=== PATIENT | male | born 1985 | race Caucasian/White ===

== ENCOUNTER 2020-09-25 04:49 | Outpatient (CLI) | payer MEDICAID | END 2020-09-25 04:50 | disposition critical access hospital (66) | LOC: EMS 04:49 | DX: S09.90XA Unspecified injury of head, initial encounter (principal); X58.XXXA Exposure to other specified factors, initial encounter; Y92.009 Unspecified place in unspecified non-institutional (private) residence as the place of occurrence of the external cause | CPT/HCPCS: A0425; A0429 ==

== ENCOUNTER 2020-09-25 04:58 | Emergency (ER) | payer MEDICAID ==
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
[2020-09-25 05:56] LABS: BASOPHILS # (AUTO) 0.1 10^3/uL (0.0-0.1); BASOPHILS % (AUTO) 0.3 %; EOSINOPHILS % (AUTO) 0.1 %; HCT - HEMATOCRIT 43.9 % (42.0-52.0); HGB - HEMOGLOBIN 14.6 g/dL (14.0-18.0); LYMPHOCYTES # (AUTO) 0.8 10^3/uL (1.5-3.5); LYMPHOCYTES % (AUTO) 4.5 %; MEAN CORPUSCULAR HEMOGLOBIN 29.3 pg (27.0-31.0); MEAN CORPUSCULAR HGB CONC 33.3 g/dL (32.0-36.0); MEAN PLATELET VOLUME 9.3 fL (7.4-11.4); MONOCYTES # (AUTO) 0.9 10^3/uL (0.0-1.0); MONOCYTES % (AUTO) 5.1 %; NEUTROPHILS # (AUTO) 15.6 10^3/uL (1.5-6.6); NEUTROPHILS % (AUTO) 89.6 %; PLT - PLATELET COUNT 269 10^3/uL (130-450); RED BLOOD COUNT 4.99 10^6/uL (4.70-6.10); RED CELL DISTRIBUTION WIDTH 12.2 % (12.0-15.0); WHITE BLOOD COUNT 17.4 x10^3/uL (4.8-10.8)
[2020-09-25 06:10] LABS: ACETAMINOPHEN < 10 ug/mL (10-30); ALBUMIN 4.6 g/dL (3.2-5.5); ALBUMIN/GLOBULIN RATIO 1.8 (1.0-2.2); ALKALINE PHOSPHATASE 64 IU/L (42-121); ALT ALANINE AMINOTRANSFERASE 18 IU/L (10-60); AST ASPARTATE AMINOTRANSFERASE 22 IU/L (10-42); BILIRUBIN,TOTAL 1.6 mg/dL (0.2-1.0); BUN - BLOOD UREA NITROGEN 19 mg/dL (6-20); CALCIUM 9.1 mg/dL (8.5-10.3); CARBON DIOXIDE - CO2 27 mmol/L (21-32); CHLORIDE 101 mmol/L (101-111); CREATININE 1.2 mg/dL (0.6-1.2); ETOH - ETHANOL < 5.0 mg/dL; GFR - MDRD 69 (>89); GLUCOSE 113 mg/dL (70-100); LIPASE 31 U/L (22-51); POTASSIUM 3.7 mmol/L (3.5-5.0); SALICYLATE < 6.0 mg/dL; SODIUM 138 mmol/L (135-145); TOTAL PROTEIN 7.2 g/dL (6.7-8.2)
[2020-09-25 08:34] LABS: MUDS CUTOFF CONCENTRATIONS CUTOFF CONC BELOW:
[2020-09-25 08:35] LABS: BILIRUBIN,URINE NEGATIVE (NEGATIVE); GLUCOSE, URINE (UA) NEGATIVE (NEGATIVE); KETONES,URINE (UA) NEGATIVE (NEGATIVE); LEUKOCYTE ESTERASE, URINE NEGATIVE (NEGATIVE); NITRITE,URINE NEGATIVE (NEGATIVE); OCCULT BLOOD,URINE NEGATIVE (NEGATIVE); PROTEIN,URINE TRACE mg/dL (NEGATIVE); UROBILINOGEN,URINE 0.2 (NORMAL) E.U./dL (NORMAL)
[2020-09-25 08:37] LABS: CLARITY,URINE CLEAR (CLEAR)
[2020-09-25 08:46] LABS: AMPHETAMINE SCREEN,URINE NEGATIVE (NEGATIVE); BARBITURATE SCREEN,UR NEGATIVE (NEGATIVE); BENZODIAZEPINES SCREEN, URINE NEGATIVE (NEGATIVE); COCAINE SCREEN URINE NEGATIVE (NEGATIVE); METHADONE SCREEN, URINE NEGATIVE (NEGATIVE); METHAMPHETAMINES SCREEN, URINE POSITIVE (NEGATIVE); OPIATE SCREEN, URINE NEGATIVE (NEGATIVE); OXYCODONE SCREEN, URINE NEGATIVE (NEGATIVE); PROPOXYPHENE SCREEN, URINE NEGATIVE (NEGATIVE); THC CANNABINOID SCREEN, URINE POSITIVE (NEGATIVE); TRICYCLIC ANTIDEPRESSANT,URINE NEGATIVE (NEGATIVE)
[2020-09-25 09:31] LABS: B. PARAPERTUSSIS- RESP PCR PAN NOT DETECTED; B. PERTUSSIS- RESP PCR PANEL NOT DETECTED; C. PNEUMONIAE- RESP PCR PANEL NOT DETECTED; CORONAVIRUS 229E-RESP PCR NOT DETECTED; CORONAVIRUS HKU1-RESP PCR NOT DETECTED; CORONAVIRUS NL63-RESP PCR NOT DETECTED; CORONAVIRUS OC43-RESP PCR NOT DETECTED; HUMAN METAPNEUMOVIRUS NOT DETECTED; INFLUENZA A- RESP PCR PANEL NOT DETECTED; INFLUENZA B - RESP PCR PANEL NOT DETECTED; M. PNEUMONIAE- RESP PCR PANEL NOT DETECTED; PARAINFLUENZA VIRUS 1 NOT DETECTED; PARAINFLUENZA VIRUS 2 NOT DETECTED; PARAINFLUENZA VIRUS 3 NOT DETECTED; PARAINFLUENZA VIRUS 4 NOT DETECTED; RHINOVIRUS/ENTEROVIRUS NOT DETECTED; RSV- RESP PCR PANEL NOT DETECTED; SARS-CoV-2 -RESP PCR PANEL NOT DETECTED
[2020-09-25] MEDS ORDERED: LORazepam 1 MG TABLET PO STA (11:26)
--- NOTE | 2020-09-25 13:46 | ED Physician Documentation ---
ED Addendum - Addendum Addendum: 09/25/20 13:45The patient has remained calm and cooperative here in the ER. He was assessed by social work Yessy. He was minimizing the seriousness of his event from earlier. She felt he was not safe for discharge and requested DCR to evaluate. Arabella from DCR program talked with the patient and felt he was in need of hospitalization due to concern for safety. She is looking for bed available.
[2020-09-25] MEDS ORDERED: OLANZapine ODT 5 MG TABLET TL ONE (14:30)
[2020-09-25] MEDS ORDERED: OLANZapine 10 MG VIAL IM STA (14:32)
--- NOTE | 2020-09-25 14:37 | ED Physician Documentation ---
Face to Face for Restraints - Immediate Situation Face to Face Evaluation Date: 09/25/20 Face to Face Evaluation Time: 14:35 Restraint Situation: Chemical Patient's Reactions to the Intervention: Other - Behavioral Condition Attitude: Guarded Behavior: Agitated Orientation: Person, Place, Time Mood: Angry, Other (defensive/ paranoid) - Evaluation Review of Systems: see HPI Pertinent History/Illicit Drugs/Medications/Results: has had some drug use. - Plan Need to Continue or Terminate Violent or Chemical Restraint: will reassess after more time with meds. Not needing other dose just yet.
[2020-09-25] MEDS ORDERED: NICOTINE 14 MG PATCH TOP STA (17:25)
[2020-09-25 18:30] VITALS: BP 144/98
== END 2020-09-25 23:11 ==
LOC: EDBD → EDUNIT# → ED 04:58
DX: F22 Delusional disorders (principal); R45.851 Suicidal ideations; R45.850 Homicidal ideations; S01.01XA Laceration without foreign body of scalp, initial encounter; Y35.93XA Legal intervention, means unspecified, suspect injured, initial encounter; R00.0 Tachycardia, unspecified; Z78.1 Physical restraint status; Z20.822 Contact with and (suspected) exposure to COVID-19; F17.200 Nicotine dependence, unspecified, uncomplicated
CPT/HCPCS: 0202U; 12001; 36415; 80053; 80306; 80307; 80320; 80329; 81003; 82550; 83690; 84443; 85025; 93005; 99284; 99285; A9270; J8499; 81001; 87086

== ENCOUNTER 2021-04-13 13:09 | Emergency (ER) | payer MEDICAID ==
[2021-04-13] MEDS ORDERED: lidocaine 1% 20 ML MDV SUBQ ONE (13:30)
[2021-04-13] MEDS ORDERED: cephALEXin 250 MG CAPSULE PO STA (13:49)
[2021-04-13] MEDS ORDERED: HYDROcod/ACETAM 5/325 MG TABLET PO STA (13:49)
[2021-04-13] MEDS ORDERED: SULFAMETH/TRIMETH DS 800/160 MG TABLET PO STA (13:49)
--- NOTE | 2021-04-13 13:52 | ED Physician Documentation ---
History of Present Illness - Stated complaint Stated Complaint: LUMP ON CHIN - Chief complaint Chief Complaint: Wound - Additonal information Additional information: 35-year-old male presents emergency department for evaluation of an abscess that has developed on his mid anterior neck. Began about 5 days ago. He thought that he had an ingrown hair and he plucked out it. Since then he has developed a swelling about the size of a golf ball. He has no dysphonia or difficulty swallowing. No fevers. No history of similar in the past. Denies any history of diabetes. Review of Systems Constitutional: reports: Reviewed and negative Ears: reports: Reviewed and negative Nose: reports: Reviewed and negative Throat: reports: Reviewed and negative Cardiac: reports: Reviewed and negative Respiratory: reports: Reviewed and negative Skin: reports: Lesions Musculoskeletal: reports: Neck pain Neurologic: reports: Reviewed and negative PD PAST MEDICAL HISTORY - Present Medications Home Medications: Ambulatory Orders Medication Instructions Recorded Confirmed HYDROcod/ACETAM 5/325 [[place] 5/325] 1 tablet PO BID PRN #10 tablet 04/13/21 Sulfamethox/Trimeth 800/160 1 each PO BID #14 tablet 04/13/21 [Bactrim Ds 800/160] cephALEXin [Keflex] 500 mg PO Q6H #28 cap 04/13/21 - Allergies Allergies/Adverse Reactions: Allergies Allergy/AdvReac Type Severity Reaction Status Date / Time No Known Drug Allergies Allergy Verified 04/13/21 13:18 - Social History Does the pt smoke?: Yes Smoking Status: Current every day smoker Does the pt have substance abuse?: Yes PD ED PE EXPANDED - General General: Alert, No acute distress, Well developed/nourished - Neck Neck: Supple w/out meningeal sx, Adenopathy, Other (Golf ball sized abscess mid anterior neck. Palpable, mildly fluctuant nonmobile.) - Cardiac Cardiac: Tachy, Radial strong equal. No: Murmur Present - Respiratory Respiratory: Clear to ausultation chevy. No: Distress, Labored - Neuro Neuro: Alert and Oriented X 3, CNII-XII intact Results - Vitals Vitals: Vital Signs - 24 hr 04/13/21 13:16 Temperature 36.5 C Heart Rate 107 H Respiratory 14 Rate Blood Pressure 146/79 H O2 Saturation 99 Oxygen O2 Source Room air Procedures - Abscess I&D (location) neck abscess Preparation: Confirmed with ultrasound, Lidocaine 1% Incision: Incised with scalpel, Purulent drainage, Loculations broken, Irrigated, Packed Other: Pt tolerated well, Dressing applied, Antibiotic prescribed PD MEDICAL DECISION MAKING - ED course Complexity details: reviewed results, re-evaluated patient, considered differential, d/w patient ED course: 35-year-old male presents emergency department for evaluation of 5 days anterior neck abscess. This began as what he thought was an ingrown hair which he atte mpted to pluck. Since then it is grown to be about the size of a golf ball. It was confirmed with ultrasound. Patient has no dysphonia or evidence of airway compromise. Risks and benefits of incision and drainage were discussed with the patient and he agreed to proceed. An incision was made superficially into the abscess and about 8 mL of purulent fluid drained. This was then packed with gau ze. Patient will be started on Keflex and Bactrim. Given the location of this abscess though he is at high risk and was given emergent return precautions for failure of symptoms to resolve. I am prescribing a short course of short-acting opioid pain medication for this patient. I have reviewed the patients QUALITY AUDITOR and no concerning findings were noted. I have discussed that the opioids are for short term therapy only, and will not be refilled from the ED. Departure - Departure Disposition: 01 Home, Self Care Clinical Impression: Cutaneous abscess of neck Condition: Stable Record reviewed to determine appropriate education?: Yes Prescriptions: Sulfamethox/Trimeth 800/160 [Bactrim Ds 800/160] 1 each PO BID #14 tablet cephALEXin [Keflex] 500 mg PO Q6H #28 cap HYDROcod/ACETAM 5/325 [[place] 5/325] 1 tablet PO BID PRN #10 tablet PRN Reason: Pain Comments: Luis sin were seen in the emergency department today for an abscess that had developed on your neck. We did confirm the location of the abscess with an ultrasound and did drain it. Approximately 8 mL of purulent fluid drained out. We did partially packed this abscess with gauze to allow it to remain open and drain. This gauze packing should be removed in about 24 to 48 hours. You can remove it in the shower. If you are uncomfortable removing it at home do not hesitate to return to the ER for a wound check and reevaluation. Please fill the prescription for the antibiotics at the [facility] pharmacy. Begin taking this evening as directed. Your first doses were given today in the ER. I have also prescribed a limited amount of hydrocodone for pain. This abscess is in an area of high risk. Therefore if you find it any point that you are having difficulty swallowing breathing, you develop fevers, you have increased redness or swelling despite taking the antibiotics and you need to return immediately to the emergency department. I am prescribing a short course of narcotic pain medication for you. These are potentially dangerous and addictive medications that should be used carefully. These medications may constipate you. Take an nwxa-vnk-tropswd stool softener (docusate) twice daily with plenty of water while taking these medications. If you go 24 hours without a bowel movement, take txqh-wxn-twkptjv miralax, per package instructions. Do not drink or drive while taking these medications. If you received narcotic or sedating medications while in the emergency department, do not drive for 24 hours. Store this medication in a safe, secure place and out of reach of children. It is a violation of federal law to give or sell this medication to another person or to use in a manner other than prescribed. The ED will not refill narcotic prescriptions, including prescriptions lost or stolen. To dispose of unwanted medications: 1. [facility] at [address] in [place] has a medication drop box. They accept prescription medications (in pill form) Friday through Friday 9:00 a.m. to 5:00 p.m. 2. The [facility] accepts prescription medications (in pill form only) for disposal year round. Call for more informa tion. 3. Contact the [facility] for the next [facility] sponsored prescription drug collection event. , [phone], or [phone]; Note that many narcotic pain relievers also contain Tylenol/acetaminophen. Please ensure that your total dose of acetaminophen from all sources does not exceed 3 g (3000 mg) per day.
[2021-04-13 14:03] VITALS: BP 125/78
== END 2021-04-13 14:04 | disposition home or self-care (01) ==
LOC: ED 13:09
DX: L02.11 Cutaneous abscess of neck (principal); F17.200 Nicotine dependence, unspecified, uncomplicated
CPT/HCPCS: 10061; 99283; A9270

== ENCOUNTER 2021-04-14 16:32 | Emergency (ER) | payer MEDICAID ==
[2021-04-14 16:39] VITALS: BP 127/85
[2021-04-14] MEDS ORDERED: SULFAMETH/TRIMETH DS 800/160 MG TABLET PO STA (16:51)
[2021-04-14] MEDS ORDERED: cephALEXin 250 MG CAPSULE PO STA (16:51)
--- NOTE | 2021-04-14 16:53 | ED Physician Documentation ---
PD HPI WOUND RECHECK - Stated complaint Stated Complaint: DRESSING CHANGE - Chief complaint Chief Complaint: Wound - Histroy obtained from History obtained from: Patient - History of Present Illness Location: Neck Timing - onset: Yesterday Pain level max: 5 Pain level now: 3 Associated symptoms: Redness, Swelling, Drainage - Additional information Additional information: Patient is a 35-year-old male who presents to the emergency department for a wound check. He was seen here yesterday for an abscess drainage. 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 No fevers. No chills. He states the swelling has decreased and he is feeling better. Review of Systems Constitutional: denies: Fever, Chills GI: denies: Vomiting, Diarrhea PD PAST MEDICAL HISTORY - Past Medical History Past Medical History: No - Past Surgical History Past Surgical History: No - Present Medications Home Medications: Ambulatory Orders Medication Instructions Recorded Confirmed HYDROcod/ACETAM 5/325 [[place] 5/325] 1 - 2 ea PO Q6H PRN #10 tablet 04/14/21 Sulfamethox/Trimeth 800/160 1 each PO BID #14 tablet 04/14/21 [Bactrim Ds 800/160] cephALEXin [Keflex] 500 mg PO Q6H #28 cap 04/14/21 - Allergies Allergies/Adverse Reactions: Allergies Allergy/AdvReac Type Severity Reaction Status Date / Time adhesive tape Allergy Rash Verified 04/14/21 16:39 - Living Situation Living Arrangement: reports: At home - Social History Does the pt smoke?: Yes Smoking Status: Current every day smoker Does the pt have substance abuse?: Yes PD ED PE NORMAL - Vitals Vital signs reviewed: Yes - General General: Alert and oriented X 3, No acute distress - HEENT HEENT: Moist mucous membranes, Other (There is a 2 x 2 centimeter indurated erythematous area with packing in place. No drainage currently. Midline of the neck, near the Laryngeal prominence of the thyroid cartilage) - Neck Neck: Supple, no meningeal sign - Cardiac Cardiac: RRR - Respiratory Respiratory: No respiratory distress, Clear bilaterally - Derm Derm: Warm and dry - Neuro Neuro: Alert and oriented X 3 Results - Vitals Vitals: Vital Signs - 24 hr 04/14/21 16:36 Temperature 36.5 C Heart Rate 92 Respiratory 16 Rate Blood Pressure 127/85 H O2 Saturation 100 Oxygen O2 Source Room air PD MEDICAL DECISION MAKING - ED course Complexity details: considered differential, d/w patient ED course: Wound appears to be healing well. Patient states that it is about half the size it was yesterday. We will change his prescriptions to a different pharmacy so he can pick them up today and start the antibiotics. Patient is well-appearing, nontoxic. Afebrile. Patient counseled regarding signs and symptoms for which I believe and urgent re-evaluation would be necessary. Patient with good understanding of and agreement to plan and is comfortable going home at this time This document was made in part using voice recognition software. While efforts are made to proofread this document, sound alike and grammatical errors may occur. I am prescribing a short course of short-acting opioid pain medication for this patient. I have reviewed the patients NURSING CLINICAL DIRECTOR and no concerning findings were noted. I have discussed that the opioids are for short term therapy only, and will not be refilled from the ED. Departure - Departure Disposition: 01 Home, Self Care Clinical Impression: Cutaneous abscess of neck Condition: Good Instructions: ED Abscess IandD Follow-Up: your,doctor in 3 days for wound check [Other] Prescriptions: Sulfamethox/Trimeth 800/160 [Bactrim Ds 800/160] 1 each PO BID #14 tablet cephALEXin [Keflex] 500 mg PO Q6H #28 cap HYDROcod/ACETAM 5/325 [[place] 5/325] 1 - 2 ea PO Q6H PRN #10 tablet PRN Reason: Pain Comments: Your prescriptions were sent to [facility] in [place]. Take all antibiotics until gone. Please follow-up with your doctor for a wound check in about 3 days. Return here sooner if worsening. The packing can be removed in 2 to 3 days as well. I am prescribing a short course of narcotic pain medication for you. These are potentially dangerous and addictive medications that should be used carefully. These medications may constipate you. Take an ersj-wvb-qhvikko stool softener (docusate) twice daily with plenty of water while taking these medications. If you go 24 hours without a bowel movement, take kfih-dlr-kejrlre miralax, per package instructions. Do not drink or drive while taking these medications. If you received narcotic or sedating medications while in the emergency department, do not drive for 24 hours. Store this medication in a safe, secure place and out of reach of children. It is a violation of federal law to give or sell this medication to another person or to use in a manner other than prescribed. The ED will not refill narcotic prescriptions, including prescriptions lost or stolen. To dispose of unwanted medications: 1. [facility] [address] in [place] has a medication drop box. They accept prescription medications (in pill form) Friday through Friday 9:00 a.m. to 5:00 p.m. 2. The [facility] accepts prescription medications (in pill form only) for disposal year round. Call for more information. 3. Contact the [facility] for the next [facility] sponsored prescription drug collection event. , [phone], or [phone];
== END 2021-04-14 17:04 | disposition home or self-care (01) ==
LOC: ED 16:32
DX: Z48.00 Encounter for change or removal of nonsurgical wound dressing (principal); L02.11 Cutaneous abscess of neck; F17.200 Nicotine dependence, unspecified, uncomplicated
CPT/HCPCS: 99283; A9270

== ENCOUNTER 2022-02-23 04:46 | Outpatient (CLI) | payer MEDICAID | END 2022-02-23 04:47 | disposition short-term general hospital (02) | LOC: EMS 04:46 | DX: R10.31 Right lower quadrant pain (principal); R39.89 Other symptoms and signs involving the genitourinary system | CPT/HCPCS: A0425; A0427; A0999 ==